=== PATIENT | female | born 1985 | race Caucasian/White ===

== ENCOUNTER 2017-05-05 00:28 | Observation (INO) | payer OTHER ==
[~2017-05-05] VITALS: Ht 167.6 cm; Wt 90.9 kg
[2017-05-05] MEDS ORDERED: LACTATED RINGERS 1,000 ML IV SCH (02:00)
[2017-05-05 02:02] VITALS: BP 124/73
== END 2017-05-05 09:35 | disposition home or self-care (01) ==
LOC: LDOP 00:28 → LDIP 01:45
PROVIDERS: ADMIT Obstetrics & Gynecology; ATTEND Obstetrics & Gynecology
DX: O36.8130 Decreased fetal movements, third trimester, not applicable or unspecified (principal); Z3A.38 38 weeks gestation of pregnancy
CPT/HCPCS: 76819; 96360; 96361; G0378; J7120

== ENCOUNTER 2017-05-09 14:59 | Outpatient (CLI) | payer OTHER ==
[~2017-05-09] VITALS: Ht 167.6 cm; Wt 97.3 kg
[2017-05-09 15:05] VITALS: BP 125/71
[2017-05-09] MEDS ORDERED: PREN1TAB60 PO (15:05)
== END 2017-05-09 18:32 | disposition home or self-care (01) ==
LOC: LDOP 14:59
PROVIDERS: ATTEND Obstetrics & Gynecology
DX: O36.8130 Decreased fetal movements, third trimester, not applicable or unspecified (principal); Z3A.39 39 weeks gestation of pregnancy
CPT/HCPCS: 59025; 76819; 99211; G0463

== ENCOUNTER 2017-05-14 08:35 | Inpatient (IN) | payer OTHER ==
[~2017-05-14] VITALS: Ht 167.6 cm; Wt 98.0 kg
[~2017-05-14 08:35] MED LIST: PREN1TAB60 PO
[2017-05-18] MEDS ORDERED: CALC-112 PO (17:16)
[2017-05-18] MEDS ORDERED: PHEN1SUP77 RC (17:16)
[2017-05-18] MEDS ORDERED: EVEP1CAP PO (17:16)
[2017-05-20] MEDS ORDERED: NEWBORN KIT ONE (20:04)
[2017-05-20] MEDS ORDERED: MISOPROSTOL 25 MCG TABLET ONE (20:04)
[2017-05-20] MEDS ORDERED: MISOPROSTOL 200 MCG TABLET ONE (20:04)
[2017-05-20] MEDS ORDERED: OXYTOCIN 30U/ 0.9% NaCL 500ML 500 ML ONE (20:05)
[2017-05-20] MEDS ORDERED: OXYTOCIN 30U/ 0.9% NaCL 500ML 500 ML IV PRN (20:20)
[2017-05-20] MEDS ORDERED: OXYTOCIN 30U/ 0.9% NaCL 500ML 500 ML IV ONE (20:20)
[2017-05-20] MEDS: LACTATED RINGERS 1,000 ML IV SCH ×2 (20:26→23:59)
[2017-05-20] MEDS ORDERED: CALCIUM CARBONATE 500 MG TAB.CHEW PO PRN (20:30)
[2017-05-20] MEDS ORDERED: ONDANSETRON 2MG/ML, 2ML IVPush PRN (20:30)
[2017-05-20] MEDS ORDERED: FENTANYL PF 100 MCG/2ML IV PRN (20:30)
[2017-05-20] MEDS ORDERED: PLEASE ENTER HEIGHT AND WEIGHT MC SCH (20:30)
[2017-05-20] MEDS ORDERED: MISOPROSTOL 25 MCG TABLET VG PRN (20:30)
[2017-05-20 20:51] LABS: WHITE BLOOD COUNT 13.4 x10^3/uL (3.4-10)
[2017-05-20] MEDS: FENTANYL PF 100 MCG/2ML IVPush PRN (23:57)
[2017-05-21] MEDS: LACTATED RINGERS 1,000 ML IV SCH ×2 (02:32→07:28)
[2017-05-21] MEDS: D5%-LACTATED RINGERS 1,000 ML IV SCH ×4 (04:20→20:20)
[2017-05-21] MEDS ORDERED: FENTANYL PF 100 MCG/2ML ONE ×2 (06:13→11:54)
[2017-05-21] MEDS: FENTANYL PF 100 MCG/2ML IVPush PRN (06:14)
[2017-05-21] MEDS ORDERED: LIDOCAINE/PF 1.5%-EPI 1:200K, 30ML ONE (07:15)
[2017-05-21] MEDS ORDERED: BUPIVACAINE/PF 0.25% ONE (07:15)
[2017-05-21] MEDS ORDERED: FENTANYL/BUPIV./NS/PF 250 ML EPIDCONT ONE (07:15)
[2017-05-21] MEDS ORDERED: FENTANYL/BUPIV./NS/PF 250 ML EPIDCONT SCH (09:02)
[2017-05-21] MEDS ORDERED: LACTATED RINGERS 1,000 ML IV SCH (09:02)
[2017-05-21] MEDS ORDERED: LACTATED RINGERS 1,000 ML IVBOLUS PRN (09:30)
[2017-05-21] MEDS ORDERED: OXYTOCIN 30U/ 0.9% NaCL 500ML 500 ML IV SCH (13:06)
[2017-05-21] MEDS ORDERED: MEASLES,MUMPS&RUBELLA VACC/PF 0.5 ML SQ PRN (13:30)
[2017-05-21] MEDS ORDERED: MISOPROSTOL 200 MCG TABLET PR PRN (13:30)
[2017-05-21] MEDS ORDERED: ONDANSETRON 2MG/ML, 2ML IV PRN (13:30)
[2017-05-21] MEDS ORDERED: DOCUSATE 100 MG CAPSULE PO PRN (13:30)
[2017-05-21] MEDS ORDERED: HYDROcodone/APAP 5/325 TABLET PO PRN (13:30)
[2017-05-21] MEDS ORDERED: CALCIUM CARBONATE 500 MG TAB.CHEW PO PRN (13:30)
[2017-05-21] MEDS ORDERED: IBUPROFEN 600 MG TABLET ONE (15:16)
[2017-05-21] MEDS ORDERED: OXYcodone/APAP 5/325MG TABLET ONE (15:17)
[2017-05-21] MEDS: IBUPROFEN 600 MG TABLET PO PRN ×2 (15:20→21:51)
[2017-05-21 15:30] VITALS: BP 113/52
[2017-05-21 20:00] VITALS: BP 104/70
[2017-05-21 21:32] LABS: HEMATOCRIT 35.3 % (34.6-47.8); HEMOGLOBIN 11.5 g/dL (11.7-16.4); WHITE BLOOD COUNT 18.7 x10^3/uL (3.4-10)
[2017-05-21] MEDS: HYDROcodone/APAP 5/325 TABLET PO PRN (21:51)
[2017-05-22] MEDS: D5%-LACTATED RINGERS 1,000 ML IV SCH ×2 (04:20→12:20)
[2017-05-22 04:29] VITALS: BP 125/82
[2017-05-22] MEDS: IBUPROFEN 600 MG TABLET PO PRN ×2 (05:37→15:19)
[2017-05-22] MEDS: HYDROcodone/APAP 5/325 TABLET PO PRN (05:37)
[2017-05-22 07:45] VITALS: BP 115/74
[2017-05-22] MEDS ORDERED: PRENATAL VIT/IRON/FA 1 EACH TABLET PO SCH (09:00)
[2017-05-22] MEDS ORDERED: HYDR-3240 PO (13:37)
[2017-05-22] MEDS ORDERED: DOCU-131 PO (13:38)
[2017-05-22] MEDS ORDERED: IBUP-1223 PO (13:39)
== END 2017-05-22 15:51 | disposition home or self-care (01) | DRG 775 ==
LOC: LDIP 05-20 19:56 → 2NW 05-21 15:34
PROVIDERS: ADMIT Obstetrics & Gynecology; ATTEND Obstetrics & Gynecology
PROC: 0KQM0ZZ Repair Perineum Muscle, Open Approach (ICD-10-PCS; principal; 2017-05-21)
PROC: 10E0XZZ Delivery of Products of Conception, External Approach (ICD-10-PCS; 2017-05-21)
PROC: 3E0S3CZ (ICD-10-PCS; 2017-05-21)
PROC: 00HU33Z Insertion of Infusion Device into Spinal Canal, Percutaneous Approach (ICD-10-PCS; 2017-05-21)
DX: O76 Abnormality in fetal heart rate and rhythm complicating labor and delivery (principal); O48.0 Post-term pregnancy; O26.03 Excessive weight gain in pregnancy, third trimester; Z37.0 Single live birth; O48.1 Prolonged pregnancy; O70.1 Second degree perineal laceration during delivery; Z3A.40 40 weeks gestation of pregnancy
CPT/HCPCS: 36415; 85025; 86850; 86900; J3010; J2590; J7120; J7121

== ENCOUNTER 2017-05-18 16:10 | Outpatient (CLI) | payer OTHER ==
[~2017-05-18] VITALS: Ht 167.6 cm; Wt 100.5 kg
[2017-05-18 16:23] VITALS: BP 134/83
[2017-05-18 16:47] LABS: WHITE BLOOD COUNT 11.1 x10^3/uL (3.4-10)
[2017-05-18 17:00] LABS: ASPARTATE AMINO TRANSFERASE 17 U/L (15-37); BLOOD UREA NITROGEN 8 mg/dL (7-18)
[2017-05-18] MEDS ORDERED: EVEP1CAP PO (17:16)
[2017-05-18] MEDS ORDERED: PHEN1SUP77 RC (17:16)
[2017-05-18] MEDS ORDERED: CALC-112 PO (17:16)
== END 2017-05-18 18:10 | disposition home or self-care (01) ==
LOC: LDOP 16:10
PROVIDERS: ATTEND Obstetrics & Gynecology
DX: O26.893 Other specified pregnancy related conditions, third trimester (principal); O62.9 Abnormality of forces of labor, unspecified; R03.0 Elevated blood-pressure reading, without diagnosis of hypertension; Z3A.39 39 weeks gestation of pregnancy
CPT/HCPCS: 36415; 59025; 80053; 81003; 82248; 82570; 84156; 84550; 85025; 99211; G0463

== ENCOUNTER 2021-04-28 18:06 | Outpatient (CLI) | payer BC ==
[~2021-04-28] VITALS: Ht 167.6 cm; Wt 88.6 kg
[~2021-04-28 18:06] MED LIST changes: +CALC-112 PO; +DOCU-131 PO; +EVEP1CAP PO; +HYDR-2214 PO; +IBUP-1223 PO; +PHEN1SUP77 RC
[2021-04-28] MEDS ORDERED: ASPI81TA59 PO (19:29)
[2021-04-28] MEDS ORDERED: CHOL400C11 PO (19:29)
== END 2021-04-28 19:40 | disposition home or self-care (01) ==
LOC: LDOP 18:06
PROVIDERS: ATTEND Obstetrics & Gynecology
DX: O46.93 Antepartum hemorrhage, unspecified, third trimester (principal); Z3A.34 34 weeks gestation of pregnancy
CPT/HCPCS: 59025

== ENCOUNTER 2021-05-25 06:37 | Inpatient (IN) | payer BC ==
[~2021-05-25] VITALS: Ht 167.6 cm; Wt 90.8 kg
[~2021-05-25 06:37] MED LIST changes: +ASPI81TA59 PO; +CHOL400C11 PO
[2021-05-25] MEDS ORDERED: LIDOCAINE 1%, 20ML ONE (07:11)
[2021-05-25] MEDS ORDERED: OXYTOCIN 30U/ 0.9% NaCL 500ML 500 ML ONE (07:11)
[2021-05-25] MEDS ORDERED: NEWBORN KIT ONE (07:11)
[2021-05-25] MEDS ORDERED: MISOPROSTOL 200 MCG TABLET ONE (07:11)
[2021-05-25] MEDS: LACTATED RINGERS 1,000 ML IV SCH ×2 (07:27→16:00)
[2021-05-25] MEDS ORDERED: LACTATED RINGERS 1,000 ML IV SCH (07:30)
[2021-05-25] MEDS ORDERED: TERBUTALINE 1 MG/ML, 1ML SQ PRN (07:30)
[2021-05-25] MEDS ORDERED: TERBUTALINE 1 MG/ML, 1ML IVPush PRN (07:30)
[2021-05-25] MEDS ORDERED: ALUMINUM/MAG/SIMETHICONE 30 ML UDC PO PRN (07:30)
[2021-05-25] MEDS ORDERED: ONDANSETRON 2MG/ML, 2ML IVPush PRN (07:30)
[2021-05-25] MEDS ORDERED: SODIUM CITRATE/CITRIC ACID 30 ML UDC PO PRN (07:30)
[2021-05-25] MEDS ORDERED: METOCLOPRAMIDE 5 MG/ML, 2ML IVPush PRN (07:30)
[2021-05-25] MEDS ORDERED: D5%-LACTATED RINGERS 1,000 ML IV SCH (07:30)
[2021-05-25] MEDS ORDERED: OXYTOCIN 30U/ 0.9% NaCL 500ML 500 ML IV ONE (07:30)
[2021-05-25] MEDS ORDERED: CALCIUM CARBONATE 500 MG TAB.CHEW PO PRN (07:30)
[2021-05-25] MEDS ORDERED: OXYTOCIN 30U/ 0.9% NaCL 500ML 500 ML IV PRN (07:30)
[2021-05-25] MEDS ORDERED: FENTANYL PF 100 MCG/2ML IVPush PRN (07:30)
[2021-05-25 07:51] LABS: BASOPHILS % (AUTO) 1 % (0-1); EOSINOPHILS % (AUTO) 1 % (1-7); LYMPHOCYTES % (AUTO) 15 % (22-44); MEAN CORPUSCULAR HEMOGLOBIN 30.5 pg (27.0-34.8); MEAN CORPUSCULAR HGB CONC 34.1 g/dL (32.4-35.8); MEAN PLATELET VOLUME 8.7 fL (7.4-10.4); MONOCYTES % (AUTO) 7 % (2-9); NEUTROPHILS % (AUTO) 76 % (42-75); PLATELET COUNT 164 x10^3/uL (130-400); RED BLOOD COUNT 4.24 x10^6/uL (3.82-5.3); RED CELL DISTRIBUTION WIDTH 13.1 % (9.6-15.2)
[2021-05-25] MEDS ORDERED: LACTATED RINGERS 1,000 ML IVBOLUS PRN (08:00)
[2021-05-25] MEDS ORDERED: NALOXONE 0.4 MG/ML, 1ML IVPush PRN (08:00)
[2021-05-25] MEDS ORDERED: EPHEDRINE 50 MG/ML, 1ML IVPush PRN (08:00)
[2021-05-25] MEDS ORDERED: FENTANYL/BUPIV./NS/PF 250 ML EPIDCONT SCH (08:00)
[2021-05-25] MEDS ORDERED: BUPIVACAINE 0.25% ONE (12:34)
[2021-05-25] MEDS ORDERED: IBUPROFEN 600 MG TABLET ONE (15:19)
[2021-05-25] MEDS: OXYTOCIN 30U/ 0.9% NaCL 500ML 500 ML IV SCH (15:30)
[2021-05-25] MEDS: IBUPROFEN 600 MG TABLET PO PRN ×2 (15:30→22:13)
[2021-05-25] MEDS ORDERED: ONDANSETRON 2MG/ML, 2ML IV PRN (16:30)
[2021-05-25] MEDS ORDERED: HYDROcodone/APAP 5/325 TABLET PO PRN (16:30)
[2021-05-25] MEDS ORDERED: OXYcodone/APAP 5/325MG TABLET PO PRN (16:30)
[2021-05-25] MEDS ORDERED: SIMETHICONE 80 MG CHEW TAB PO PRN (16:30)
[2021-05-25] MEDS ORDERED: OXYcodone IR 5MG TABLET PO PRN (16:30)
[2021-05-25 17:00] VITALS: BP 110/70
[2021-05-25] MEDS ORDERED: MISOPROSTOL 200 MCG TABLET PR ONE (17:30)
[2021-05-25 20:10] VITALS: BP 108/65
[2021-05-25] MEDS: DOCUSATE 100 MG CAPSULE PO PRN (20:32)
[2021-05-25 21:22] LABS: BASOPHILS % (AUTO) 1 % (0-1); EOSINOPHILS % (AUTO) 1 % (1-7); LYMPHOCYTES % (AUTO) 12 % (22-44); MEAN CORPUSCULAR HEMOGLOBIN 31.1 pg (27.0-34.8); MEAN CORPUSCULAR HGB CONC 34.6 g/dL (32.4-35.8); MEAN PLATELET VOLUME 8.6 fL (7.4-10.4); MONOCYTES % (AUTO) 7 % (2-9); NEUTROPHILS % (AUTO) 79 % (42-75); PLATELET COUNT 141 x10^3/uL (130-400); RED BLOOD COUNT 3.77 x10^6/uL (3.82-5.3); RED CELL DISTRIBUTION WIDTH 12.8 % (9.6-15.2)
[2021-05-26] MEDS: LACTATED RINGERS 1,000 ML IV SCH
[2021-05-26 00:09] VITALS: BP 109/71
[2021-05-26] MEDS: OXYTOCIN 30U/ 0.9% NaCL 500ML 500 ML IV SCH (02:30)
[2021-05-26 04:20] VITALS: BP 117/81
[2021-05-26] MEDS: IBUPROFEN 600 MG TABLET PO PRN ×2 (04:20→11:00)
[2021-05-26 08:00] VITALS: BP 108/72
[2021-05-26] MEDS: DOCUSATE 100 MG CAPSULE PO PRN (08:36)
[2021-05-26] MEDS ORDERED: PRENATAL VIT/IRON/FA 1 EACH TABLET PO SCH (09:00)
[2021-05-26] MEDS ORDERED: IBUP-1222 PO ×2 (12:11→12:21)
[2021-05-26] MEDS ORDERED: DOCU-131 PO ×2 (12:11→12:21)
[2021-05-26] MEDS ORDERED: HYDR-2214 PO (12:13)
== END 2021-05-26 15:51 | disposition home or self-care (01) | DRG 807 ==
LOC: LDIP 06:37 → 2NW 16:55
PROVIDERS: ADMIT Obstetrics & Gynecology; ATTEND Obstetrics & Gynecology
PROC: 10E0XZZ Delivery of Products of Conception, External Approach (ICD-10-PCS; principal; 2021-05-25)
PROC: 0KQM0ZZ Repair Perineum Muscle, Open Approach (ICD-10-PCS; 2021-05-25)
PROC: 3E0R3BZ Introduction of Anesthetic Agent into Spinal Canal, Percutaneous Approach (ICD-10-PCS; 2021-05-25)
PROC: 00HU33Z Insertion of Infusion Device into Spinal Canal, Percutaneous Approach (ICD-10-PCS; 2021-05-25)
PROC: 3E0DXGC Introduction of Other Therapeutic Substance into Mouth and Pharynx, External Approach (ICD-10-PCS; 2021-05-25)
DX: O70.1 Second degree perineal laceration during delivery (principal); Z37.0 Single live birth; Z3A.39 39 weeks gestation of pregnancy; Z20.822 Contact with and (suspected) exposure to COVID-19
CPT/HCPCS: 36415; 85025; 86592; 86850; 86900; 87635; G0378; J2590; J3010; J7120